=== PATIENT | female | born 1955 | race Caucasian/White ===

== ENCOUNTER 2020-12-05 04:55 | Day surgery (SDC) | payer BC ==
[2020-12-02 16:46] VITALS: BMI 29.2
[2020-12-05 11:34] VITALS: TEMP 97.4
[2020-12-05 12:29] VITALS: BP 112/60; PULSE 57
== END 2020-12-05 12:29 | disposition home or self-care (01) ==
LOC: JASU-ENDO 04:55
PROVIDERS: ATTEND Internal Medicine Gastroenterology
PROC: 0DBL8ZX Excision of Transverse Colon, Via Natural or Artificial Opening Endoscopic, Diagnostic (ICD-10-PCS; principal; 2020-12-05 10:59)
DX: Z51.11 Encounter for antineoplastic chemotherapy (principal); D12.3 Benign neoplasm of transverse colon; K57.30 Diverticulosis of large intestine without perforation or abscess without bleeding
CPT/HCPCS: 88305-TC